=== PATIENT | male | born 1940 | race Caucasian/White ===

== ENCOUNTER → 2017-12-24 | Outpatient (CLI) | payer OTHER | LOC: BHFA 15:30 | PROVIDERS: ATTEND Internal Medicine Cardiovascular Disease | DX: I73.9 Peripheral vascular disease, unspecified (principal) ==

== ENCOUNTER 2018-03-14 09:12 | Inpatient (IN) | payer OTHER ==
[2018-03-14] MEDS ORDERED: ASPIRIN EC 325 MG TAB PO ONE (09:16)
[2018-03-14] MEDS ORDERED: methylPREDNISolone SOD SUCC 125 MG/2 ML VIAL IVP ONE (09:16)
[2018-03-14] MEDS ORDERED: NS 1,000 ML IV ONE (09:16)
[2018-03-14] MEDS ORDERED: FAMOTIDINE 20 MG/NACL 50 ML IV ONE (09:16)
[2018-03-14] MEDS ORDERED: DIAZEPAM 5 MG TAB PO ONE (09:16)
[2018-03-14] MEDS ORDERED: CLOPIDOGREL BISULFATE 75 MG TAB PO ONE (09:45)
[2018-03-14 10:07] LABS: PLATELET COUNT 160 10^3/uL (150-400)
--- NOTE | 2018-03-14 10:12 | PDHPUP ---
History & Physical Update H&P update statement: This history and physical update is based on an assessment of the patient which was completed after admission or registration (within 24 hours), but prior to the surgery/procedure. H&P update: H&P reviewed & patient examined, no change in patient's condition since H&P completed
--- NOTE | 2018-03-14 10:12 | PDPROPOC ---
Sedation Plan of Care Sedation Plan of Care: mental status noted, patient educated of risks, benefits , alternatives, patient can tolerate sedation ASA Classification: ASA 2 Planned drugs: fentanyl, midazolam Mallampati Score: Class 2 Mallampati Reference Image: Patient passed 3-3-2 rule?: Yes
[2018-03-14 10:16] LABS: INR 1.12 (0.83-1.16); PROTIME(PATIENT) 14.6 SEC (12.0-15.0)
[2018-03-14] MEDS ORDERED: fentaNYL 100 MCG/2 ML INJ ONE (10:21)
[2018-03-14] MEDS ORDERED: LIDOCAINE 1% 300 MG/30 ML SDV ONE (10:21)
[2018-03-14] MEDS ORDERED: MIDAZOLAM 2 MG/2 ML VIAL ONE (10:21)
[2018-03-14] MEDS ORDERED: IOPAMIDOL (ISOVUE-300) 150 ML BTL ONE (10:22)
[2018-03-14] MEDS ORDERED: HEPARIN 10,000 UNIT/10 ML MDV (1,000 UNIT/ML) ONE ×2 (11:01→12:18)
--- NOTE | 2018-03-14 11:18 | CPEKG ---
Test Reason : OPEN Blood Pressure : / mmHG Vent. Rate : 088 BPM Atrial Rate : 000 BPM P-R Int : 301 ms QRS Dur : 129 ms QT Int : 426 ms P-R-T Axes : -03 054 181 degrees QTc Int : 516 ms Atrial fibrillation Inferior Q waves Non-specific lateral st depression Confirmed by Jay Bah ([id number]) on 03/14/2018 11:17:37 AM Referred By: Confirmed By:Jay Bah
[2018-03-14] MEDS ORDERED: PROTAMINE SULFATE 50 MG/5 ML VIAL IVP ONE ×3 (13:06→15:00)
[2018-03-14] MEDS ORDERED: NITROGLYCERIN 0.4 MG BTL SL PRN (13:31)
[2018-03-14] MEDS ORDERED: OXYCODONE/APAP 5/325 TAB PO PRN (13:31)
[2018-03-14] MEDS ORDERED: ATROPINE SULFATE 1 MG/10 ML SYR IVP PRN (13:31)
[2018-03-14] MEDS ORDERED: ONDANSETRON 4 MG/2 ML VIAL IVP PRN (13:31)
[2018-03-14] MEDS ORDERED: HYDROCODONE/APAP 5/325 TAB PO PRN (13:31)
[2018-03-14] MEDS ORDERED: D50W 25 GM/50 ML SYR IVP PRN (18:43)
--- NOTE | 2018-03-14 19:16 | PDHOSCONS ---
History and Physical - Chief Complaint Diabetes - History of Present Illness This is a 77 y/o male with history of peripheral artery disease and claudication who underwent a right lower extremity angioplasty of the SFA. Hospital medicine has been asked to consult for his diabetes. Fasting glucose prior to today's procedure was 352. S/p procedure, he is in no respiratory distress and reports doing quite well. Denies chest pains, shortness of breath, nausea. Bilateral lower extremity sensation intact. Pedal pulses 2+. In regards to his diabetes, he used to be on Januvia 50mg once a day but stopped 3-4 months ago because of the expense. He recently enrolled into Medicare D which will allow the medication to be significantly cheaper; he would like to resume Januvia by hospital medicine eRxing/writing a script for him when he is discharged tomorrow. He is in disbelief his glucose is 352. He reports never having any issues while utilizing Januvia and for that reason, he refuses TID glucose checks and insulin injections. He saved a 10-pill pack of Januvia which his son will go to his house tonight, retrieve, and bring back for the pt to take tonight. They both understand the medication needs to be given to pharmacy for verification before ingesting. Hemoglobin A1c in May 2017 was 8.5% but pt believes he had a more recent one performed and it was 7.2%. Past Medical/Surgical History 1. CHF Stage III 2. CAD s/p CABG x 7 vessels (2003) 3. Ischemic cardiomyopathy 4. Hypertension 5. Diabetes II 6. Chronic Kidney Disease 7. Atrial Fibrillation 8. Peripheral artery disease 9. Pulmonary Hypertension 10. Tricuspid regurgitation 11. Carotid endarterectomy 12. Cholecystectomy 13. Defibrillator Implant Social 1. , is in memory-care assisted living 2. Former smoker (quit in 1967), no illicit or alcohol use. History Information - Allergies/Home Medication List Allergies/Adverse Reactions: Glcjtdn-Fdu-Qgo Reductase Inhibitor [Pkhhscn-Sbc-Iug Reductase Inhibitors] Allergy (Unknown, Verified 10/15/17 18:02) iodine Allergy (Verified 10/12/17 15:57) oswald peppers Allergy (Uncoded 10/12/17 15:58) contrast Allergy (Uncoded 10/12/17 15:57) Home Medications: Carvedilol [Coreg (*)] 25 mg PO BIDMEAL 03/07/18 [Last Taken 03/14/18 06:00] Furosemide [Lasix 80 MG (*)] 40 mg PO DAILY 03/07/18 [Last Taken 03/13/18 06:00] Spironolactone [Aldactone 25 MG (*)] 25 mg PO DAILY 03/07/18 [Last Taken 06:00] I have personally reviewed and updated: family history, medical history, social history, surgical history Past Medical History: See HPI list - Surgical History Additional surgical history: See HPI list - Family History Additional family history: CAD in both parents - Social History Smoking Status: Former smoker Alcohol Use: None Drug Use: None Review of Systems Review of Systems: ROS: 10pt was reviewed & negative except for what was stated in HPI & below Constitutional: Reports: no symptoms EENMT: Reports: no symptoms Cardiac: Reports: no symptoms Respiratory: Reports: no symptoms Gastrointestinal: Reports: no symptoms Genitourinary: Reports: no symptoms Muscolosketal: Reports: no symptoms Skin: Reports: no symptoms Neurological: Reports: no symptoms Hematologic/Lymphatic: Reports: no symptoms Immunologic/Allergy: Reports: no symptoms Physical Exam Physical Exam: Temp Pulse Resp BP Pulse Ox 8 L 105/65 91 L 03/14/18 17:55 03/14/18 17:47 03/14/18 17:55 Constitutional: no apparent distress, appears nourished, not in pain Eyes: PERRL, anicteric sclera, EOMI Ears, Nose, Mouth, Throat: moist mucous membranes, hearing normal, ears appear normal, no oral mucosal ulcers Cardiovascular: regular rate and rhythym, no murmur, rub, or gallop, No edema Peripheral Pulses: 2+: dorsalis-pedis (R) (Radial 2+), dorsalis-pedis (L) ( Radial 2+) Respiratory: no respiratory distress, no rales or rhonchi, clear to auscultation Gastrointestinal: soft, non-tender abdomen, no palpable masses, other ( Hypoactive BS) Genitourinary: no bladder fullness, no bladder tenderness Skin: warm, normal color, no rashes or abrasions, no fluctuance, no induration, No mottled Musculoskeletal: full muscle strength, no muscle tenderness, normal joint ROM, no joint effusions Neurologic: AAOx3, sensation intact bilaterally, CN II-XII Intact Psychiatric: interacting appropriately, not anxious, not encephalopathic, thought process linear Lymph, Heme, Immunologic: no cervical LAD, no supraclavicular LAD Lab Data & Imaging Review 03/14/18 09:45 03/14/18 09:45 WBC 9.01 10^3/uL (3.80-9.50) 03/14/18 09:45 RBC 4.54 10^6/uL (4.40-6.38) 03/14/18 09:45 Hgb 14.7 g/dL (13.7-17.5) 03/14/18 09:45 Hct 41.5 % (40.0-51.0) 03/14/18 09:45 MCV 91.4 fL (81.5-99.8) 03/14/18 09:45 MCH 32.4 pg (27.9-34.1) 03/14/18 09:45 MCHC 35.4 g/dL (32.4-36.7) 03/14/18 09:45 RDW 12.7 % (11.5-15.2) 03/14/18 09:45 Plt Count 160 10^3/uL (150-400) 03/14/18 09:45 MPV 10.5 fL (8.7-11.7) 03/14/18 09:45 Neut % (Auto) 73.6 % (39.3-74.2) 03/14/18 09:45 Lymph % (Auto) 12.0 % (15.0-45.0) L 03/14/18 09:45 [place] % (Auto) 8.9 % (4.5-13.0) 03/14/18 09:45 Eos % (Auto) 3.7 % (0.6-7.6) 03/14/18 09:45 Baso % (Auto) 1.0 % (0.3-1.7) 03/14/18 09:45 Nucleat RBC Rel Count 0.0 % (0.0-0.2) 03/14/18 09:45 Absolute Neuts (auto) 6.64 10^3/uL (1.70-6.50) H 03/14/18 09:45 Absolute Lymphs (auto) 1.08 10^3/uL (1.00-3.00) 03/14/18 09:45 Absolute Monos (auto) 0.80 10^3/uL (0.30-0.80) 03/14/18 09:45 Absolute Eos (auto) 0.33 10^3/uL (0.03-0.40) 03/14/18 09:45 Absolute Basos (auto) 0.09 10^3/uL (0.02-0.10) 03/14/18 09:45 Absolute Nucleated RBC 0.00 10^3/uL (0-0.01) 03/14/18 09:45 Immature Gran % 0.8 % (0.0-1.1) 03/14/18 09:45 Immature Gran # 0.07 10^3/uL (0.00-0.10) 03/14/18 09:45 PT 14.6 SEC (12.0-15.0) 03/14/18 09:45 INR 1.12 (0.83-1.16) 03/14/18 09:45 Sodium 135 mEq/L (135-145) 03/14/18 09:45 Potassium 5.0 mEq/L (3.5-5.2) 03/14/18 09:45 Chloride 98 mEq/L (97-110) 03/14/18 09:45 Carbon Dioxide 26 mEq/l (22-31) 03/14/18 09:45 Anion Gap 11 mEq/L (6-14) 03/14/18 09:45 BUN 36 mg/dL (7-23) H 03/14/18 09:45 Creatinine 1.8 mg/dL (0.7-1.3) H 03/14/18 09:45 Estimated GFR 37 03/14/18 09:45 Glucose 352 mg/dL (70-100) H 03/14/18 09:45 Calcium 10.0 mg/dL (8.5-10.4) 03/14/18 09:45 Magnesium 1.9 mg/dL (1.6-2.3) 03/14/18 09:45 Total Bilirubin 1.4 mg/dL (0.1-1.4) 03/14/18 09:45 Conjugated Bilirubin 0.6 mg/dL (0.0-0.5) H 03/14/18 09:45 Unconjugated Bilirubin 0.8 mg/dL (0.0-1.1) 03/14/18 09:45 AST 17 IU/L (17-59) 03/14/18 09:45 ALT 23 IU/L (21-72) 03/14/18 09:45 Alkaline Phosphatase 102 IU/L (38-126) 03/14/18 09:45 NT-Pro-B Natriuret Pep 4040 pg/mL (0-450) H 03/14/18 09:45 Total Protein 7.2 g/dL (6.3-8.2) 03/14/18 09:45 Albumin 4.3 g/dL (3.5-5.0) 03/14/18 09:45 Triglycerides 262 mg/dL (40-150) H 03/14/18 09:45 Cholesterol 200 mg/dL (140-220) 03/14/18 09:45 Cholesterol Risk Factr 1.4 (0.2-1.0) H 03/14/18 09:45 LDL Cholesterol, Calc 115 mg/dL (80-100) H 03/14/18 09:45 LDL Risk Factor 1.0 (0.2-1.0) 03/14/18 09:45 VLDL Cholesterol 52 mg/dL (8-25) H 03/14/18 09:45 Non-HDL Cholesterol 167 mg/dL (90-129) H 03/14/18 09:45 HDL Cholesterol 33 mg/dL (40-65) L 03/14/18 09:45 LDL/HDL Ratio 3.47 RATIO (1.00-3.64) 03/14/18 09:45 Cholesterol/HDL Ratio 6.06 RATIO (1.00-4.97) H 03/14/18 09:45 Patient ABO/Rh O POSITIVE 03/14/18 09:45 Antibody Screen NEGATIVE 03/14/18 09:45 Assessment & Plan Plan: This is a very pleasant 77 y/o male s/p RLE SFA angioplasty who received Plavix 600 mg PO this morning prior to procedure. Hospital medicine team was asked to consult the pt for his diabetes. As mentioned before in HPI, he stopped Januvia because of the cost until he was able to enroll into Medicare Part D to allow the medication to be more affordable. He is refusing any insulin injections should it be deemed necessary as well as ACCU checks. There is uncertainty of the timing of his last A1c so I have ordered that lab. The son will retrieve the pt's remaining Januvia tablets for him to take tonight with the understanding pharmacy will first need to verify it before he is allowed to take it. Prior to discharge tomorrow, the pt would like a renewal of this medication from hospital medicine. Per pt, dispo is tomorrow Code: Full Diet: Cardiac
[2018-03-14] MEDS: NS 1,000 ML IV SCH ×2 (19:51→19:55)
[2018-03-14] MEDS ORDERED: INSULIN LISPRO 100 UNIT/ML SC ONE (21:01)
--- NOTE | 2018-03-14 21:04 | HOSPPROG ---
Hospitalist Progress Note Assessment/Plan: patient seen/examined/discussed w ESA To. 77 yo M w complex history, off januvia for months. glucose 325 this AM, 465 now. wishes to to restart januvia , reluctant to inpt management now. 1. agrees to 8 units lispro now, recheck in AM 2. restart januvia 50 mg 3. outpt follow up w [place], uptitrate therapy as needed Objective: Vital Signs Temp Pulse Resp BP Pulse Ox 8 L 105/65 91 L 03/14/18 17:55 03/14/18 17:47 03/14/18 17:55 Laboratory Results 03/14/18 09:45 03/14/18 09:45 PT 14.6 SEC (12.0-15.0) 03/14/18 09:45 INR 1.12 (0.83-1.16) 03/14/18 09:45 ICD10 Worksheet Patient Problems: Problems Problem Status Onset CHF (congestive heart failure) Acute Chronic Disease [facility]/Transitional Care Acute
--- NOTE | 2018-03-14 22:21 | CPIP ---
DATE OF PROCEDURE: 03/14/2018 INDICATIONS FOR PROCEDURE: Severe claudication. PROCEDURES: 1. Nonselective left groin sheathogram. 2. Runoff of left lower extremity. 3. Abdominal aortogram showed catheterization right posterior tibial artery. 4. Right lower extremity: a. Attempts at wiring of right superficial femoral artery with antegrade balloon, wire and catheter technique. b. Access of right posterior tibial artery utilizing micropuncture and 4-[place] sheath. c. Retrograde access with a Glidewire. d. Body floss with Glidewire. e. Placement of a [place] catheter in the right popliteal artery. f. Percutaneous transluminal angioplasty of right superficial femoral artery utilizing 4.0 x 100 mm [employer] balloon. g. Percutaneous transluminal angioplasty of right superficial femoral artery utilizing 5.0 x 150 mm DCB. DESCRIPTION OF PROCEDURE: Briefly this is a 77-year-old male with history of severe peripheral arter ial disease. The patient had been complaining of worsening right claudication. Given the findings, th e patient consented and brought to [facility]. After informed consent, he was brought t [facility] where the left groin was prepped and draped in usual sterile fashion. Using lidocaine, a short 6-[place] sheath in the left femoral artery verified angiographically. Runoff of left lower extremity showed a patent but diseased left common femoral artery, patent profunda artery. The SFA was 100% occ luded at its ostial takeoff and reconstituted in Perez's canal. After this was performed, the pigtai l catheter was advanced to the descending aorta. Abdominal aortogram was obtained which showed patent distal aorta, patent bilateral common iliac stents. There was patent bilateral common iliac stents w ith mild in-stent restenosis of the right common iliac stent. Internal iliac artery was diffusely dis eased but patent. Bilateral external iliac arteries were patent. At this time, a [place] flush was catheter advanced to the right contralateral femoral artery where runoff of the right lower extremity was obtained. This showed patent right common femoral artery, pa tent right profunda artery, SFA was patent proximally but then ended up being 100% occlusion. The SFA reconstituted in the distal right SFA. Popliteal artery had 50% to 60% disease. Infrapopliteal, ther e appeared to be initial 3-vessel runoff to the foot with the most healthy vessel being the posterior tibial artery. The peroneal artery was diffusely diseased as well as the anterior tibial artery. Wit h these images obtained, the long and stiff Glidewire was placed into the profunda artery was flushed . [place] flush catheter was removed. The short 6-[place]wan[place] sheath was removed. A 6-[place] destination sheath was advanced to the right contra artery. INTERVENTIONAL REPORT: At this time, the patient was administered 10,000 heparin IV and utilizing a G lidewire and a glide catheter, attempts were made to cross the SFA DOG OR ANIMAL SITTER in an antegrade fashion. This was unsuccessful utilizing multiple wires and catheters. At this time, we decided to access pedal acc ess from the posterior tibial artery with a micropuncture kit, and a 4-[place] sheath. A Glidewire was then advanced and successfully traversed the entire length of the SFA and appeared to be in true lum en by the common femoral artery. We successfully placed the Glidewire into the 6-[place]an destination s lida, pulled it through the proximal end of the sheath where we then proceeded with the body floss t echnique and then proceeded to place a Quick Cross catheter antegrade down into the popliteal artery. This was then verified angiographically as being the true vessel. A Glidewire Advantage was then teri ledy into the popliteal artery. We then proceeded with [employer] SYSTEMS of the entire length of the SFA with a 4.0 x 100 mm balloon. Multiple sequential lesions of 10 atmospheres occurred throughout this area. We the n proceeded with the [employer]S with a 5.0 x 150 mm balloon. Multiple sequential DCB. Multiple s equential occurred throughout the SFA. After this was performed, the balloon was removed. Angiograph was obtained which showed widely patent SFA with ajcn-ta-geaypred dissection planes. Guzman aamir, none of these dissection planes were flow limiting. There was excellent flow into the popliteal artery. There was still intact 3-vessel flow infrapopliteal after we were finished. Once this was per formed, the 6-[place] destination sheath was then pulled back and replaced with a short 7-[place] sheat h. The right posterior tibial sheath was pulled back and closed with a radial sheath. The patient mata erated the procedure well with no complications. IMPRESSION: Successful percutaneous transluminal angioplasty of superficial femoral artery chronic t otal occlusion on the right side utilizing pedal access as well as antegrade technique. PLAN: The patient has an occluded left SFA. We will see how he recovers from his right SFA procedure first and discuss with him in the office proceeding forward with any other procedure for the left SF A. /[id number]/MODL
[2018-03-15 06:19] VITALS: BP 111/73
--- NOTE | 2018-03-15 07:20 | PDCARPN ---
Cardiology Progress Note Chief Complaint: claudication Assessment/Plan: Assessment: PAD CAD DM Plan: 03/15/18 07:18 Feels good this AM Appreciate hospitalist input Continue home meds including plavix 75 mg po qd d/c home if cleared by hospitalist team Subjective: doing well Reviewed/Discussed With: multidisciplinary team Time Spent with Patient: greater than 25 minutes Time Spent with Patient: Greater than 25 minutes spent on this patients care, greater than 50% of time spent counseling, educating, and coordinating care regarding the above mentioned plan. Objective: Vital Signs (8 Hrs) Temp Pulse Resp BP Pulse Ox 03/15/18 04:00 36.3 C 80 16 111/73 95 03/14/18 23:47 36.5 C 79 16 93/62 L 96 Intake/Output (24 Hrs) 03/14/18 03/15/18 03/16/18 05:59 05:59 05:59 Intake Total 300 Output Total 450 Balance -150 Intake: Oral (ml) 300 Output: Urine (ml) 450 Urinal 450 Other: Weight 66.2 kg Number of Voids Urinal 2 Result Diagrams: 03/14/18 09:45 03/15/18 06:02 - Physical Exam Constitutional: no apparent distress Eyes: PERRL Ears, Nose, Mouth, Throat: moist mucous membranes Cardiovascular: irregularly irregular Peripheral Pulses: 1+: femoral (R), femoral (L) Respiratory: clear to auscultate bilat Gastrointestinal: normoactive bowel sounds Genitourinary: no suprapubic tenderness Skin: no rashes Musculoskeletal: no muscular tenderness Neurologic: AAOx3 Psychiatric: cooperative ICD10 Worksheet Patient Problems: Problems Problem Status Onset CHF (congestive heart failure) Acute Chronic Disease Mgmt/Transitional Care Acute
[2018-03-15] MEDS ORDERED: INSULIN LISPRO 100 UNIT/ML SC SCH (08:00)
[2018-03-15] MEDS ORDERED: FUROSEMIDE 40 MG TAB PO SCH (09:00)
[2018-03-15] MEDS ORDERED: SITAGLIPTIN PO SCH (09:00)
[2018-03-15] MEDS ORDERED: SPIRONOLACTONE 25 MG TAB PO SCH (09:00)
[2018-03-15] MEDS ORDERED: LOSARTAN POTASSIUM 25 MG TAB PO SCH (09:00)
[2018-03-15] MEDS ORDERED: CLOPIDOGREL BISULFATE 75 MG TAB PO SCH (10:45)
--- NOTE | 2018-03-15 11:00 | HOSPPROG ---
Hospitalist Progress Note Assessment/Plan: 77 year old male sp angioplasty, medicine consulted to manage diabetes. Diabetes Mellitus- A1c 10.7. Patient not compliant with januvia. Says he could not afford it. Restarted here, added lispro, which he refused. On discharge he can restart Januvia and follow upw with PCP. He did not tolerated Glucophage and refuses insulin. Could add sulfonylurea as outpatient. -cont januvia. -if patient stays, SSI Subjective: no complaints. Objective: Vital Signs Temp Pulse Resp BP Pulse Ox 36.3 C 80 16 111/73 95 03/15/18 04:00 03/15/18 04:00 03/15/18 04:00 03/15/18 04:00 03/15/18 04:00 Laboratory Results 03/14/18 09:45 03/15/18 06:02 03/14/18 03/15/18 03/16/18 05:59 05:59 05:59 Intake Total 300 Output Total 450 Balance -150 PT 14.6 SEC (12.0-15.0) 03/14/18 09:45 INR 1.12 (0.83-1.16) 03/14/18 09:45 - Physical Exam Constitutional: no apparent distress, appears nourished, not in pain Eyes: PERRL, anicteric sclera, EOMI Ears, Nose, Mouth, Throat: moist mucous membranes, hearing normal, ears appear normal, no oral mucosal ulcers Cardiovascular: regular rate and rhythym, no murmur, rub, or gallop Respiratory: no respiratory distress, no rales or rhonchi, clear to auscultation Gastrointestinal: normoactive bowel sounds, soft, non-tender abdomen, no palpable masses Genitourinary: no bladder fullness, no bladder tenderness, no renal bruits Skin: no rashes or abrasions, no fluctuance, no induration Musculoskeletal: full muscle strength, no muscle tenderness, normal joint ROM Neurologic: AAOx3, sensation intact bilaterally Psychiatric: interacting appropriately, not anxious, not encephalopathic, thought process linear Lymph, Heme, Immunologic: no cervical LAD, no supraclavicular LAD ICD10 Worksheet Patient Problems: Problems Problem Status Onset CHF (congestive heart failure) Acute Chronic Disease [facility]/Transitional Care Acute
--- NOTE | 2018-03-15 12:00 | GDS ---
DISCHARGE DIAGNOSIS: Peripheral arterial disease/diabetes. HOSPITAL COURSE: Briefly, this is a 77-year-old male with history of severe bilateral lower extremit y claudication. The patient was found to have bilateral occluded SFAs, but his pain was worse in the right leg versus the left. The patient underwent a SFA MESSENGER FLOORPERSON utilizing both antegrade and retrograde techniques from the left groin as well as the right posterior tibialis. Post procedure, the patient has done well overnight. However, it was noted that his blood sugar was significantly elevated in th e 300s and going up to the 400s early this morning. Hospitalist evaluation was called for diabetic m anagement. The patient was seen by hospitalist, and sugars were managed accordingly. The patient wi ll be discharged home this morning with his home medications including Eliquis, and will be started o n Plavix as well. He will follow up in the office in 1 week's time. /[id number]/MODL
--- NOTE | 2018-03-15 12:46 | ASDISCHSUM ---
Discharge Information Plan Status:Home with No Needs Medically Cleared to Leave:03/14/2018 Discharge Date:03/15/2018 11:48 AM CM D/C Disposition:Home, Routine, Self-Care ADT D/C Disposition:Home, Routine, Self-Care Projected Discharge Date:03/15/2018 11:48 AM Transportation at D/C: Discharge Delay Reason: Follow-Up Date:03/15/2018 11:48 AM Discharge Slot: Final Diagnosis: Placement Information Patient Contact Information Contact Name:MISHEL Relationship:Son Address:[address] Work Phone: [place] Alternate Phone: [facility]/Zip Code:[place] [address] Email: Financial Information Financial Class:Medicare Primary Plan Desc:MEDICARE INPATIENT Primary Plan Number:[id number] Secondary Plan Desc:EBER GUINEAN Secondary Plan Number:[id number] Assessment Information LACE LACE Length of stay for Answers: Less than 1 day current admission Acuity / Level of Answers: Yes Care: Did the patient have an inpatient admission? Comorbidities - select Answers: Congestive heart failure all that apply Diabetes (uncontrolled or controlled) Moderate or severe liver or renal disease # of Emergency department Answers: 1-2 visits in the last 6 months Score: 11 Date Signed: 03/15/2018 12:45 PM Electronically Signed By:Mayela Arellano RN Intervention Information
--- NOTE | 2018-03-15 23:59 | PDMN ---
Medical Necessity Medical necessity: Pt meets IP criteria as of 03/14/2018 per and [facility] [place] [id number] ( Percutaneous Revascularization, Lower Extremity); est los > 2 mn s/p angioplasty of the R SFA d/t worsening peripheral artery disease and claudication; comorbid advanced age, CHF, CAD, cardiomyopathy, HTN, DM, CKD, afib, PAD, pulmonary HTN, tricuspid regurgitation, carotid endarterectomy, and defibrillator.
== END 2018-03-15 11:48 | disposition home or self-care (01) | DRG 253 ==
LOC: FCATH 09:12 → F2W 17:03
PROVIDERS: ADMIT Internal Medicine Cardiovascular Disease; ATTEND Internal Medicine Cardiovascular Disease
PROC: 047K3Z1 Dilation of Right Femoral Artery using Drug-Coated Balloon, Percutaneous Approach (ICD-10-PCS; principal; 2018-03-14)
DX: E11.51 Type 2 diabetes mellitus with diabetic peripheral angiopathy without gangrene (principal); I50.22 Chronic systolic (congestive) heart failure; E11.65 Type 2 diabetes mellitus with hyperglycemia; N18.9 Chronic kidney disease, unspecified; I48.91 Unspecified atrial fibrillation; I34.0 Nonrheumatic mitral (valve) insufficiency; T38.3X6A Underdosing of insulin and oral hypoglycemic [antidiabetic] drugs, initial encounter
CPT/HCPCS: C1725; C1769; C1887; J1200; J1644; J1815; J2250; J2720; J2930; J3010; Q9967

== ENCOUNTER → 2018-04-28 | Outpatient (CLI) | payer OTHER | LOC: FIMAGING 12:32 | PROVIDERS: ATTEND Internal Medicine Cardiovascular Disease | DX: R05 Cough (principal); R06.02 Shortness of breath; R63.0 Anorexia; I51.7 Cardiomegaly; R91.8 Other nonspecific abnormal finding of lung field; Z95.1 Presence of aortocoronary bypass graft ==